=== PATIENT | male | born 1955 | race Caucasian/White ===

== ENCOUNTER 2019-07-09 20:11 | Emergency (ER) | payer MEDICARE, OTHER ==
[~2019-07-09] VITALS: Ht 165.1 cm; Wt 88.9 kg
[2019-07-09 20:11] VITALS: BP 135/99
== END 2019-07-09 21:17 | disposition home or self-care (01) ==
LOC: ER 20:14
DX: S90.31XA Contusion of right foot, initial encounter (principal); S99.811A Other specified injuries of right ankle, initial encounter; I10 Essential (primary) hypertension; X50.1XXA Overexertion from prolonged static or awkward postures, initial encounter; Y93.89 Activity, other specified; Y92.89 Other specified places as the place of occurrence of the external cause; Y99.8 Other external cause status
CPT/HCPCS: 73610-TC